=== PATIENT | male | born 1970 | race Two or more races ===

== ENCOUNTER 2017-01-07 08:08 | Emergency (ER) | payer OTHER ==
--- NOTE | 2017-01-07 08:30 | EDPHY ---
H & P Time Seen by Provider: 01/07/17 08:10 HPI/ROS: HPI Finger injury. 47-year-old male by private vehicle. This patient reports that he was at work. He reports that he was moving a fan accidentally jammed his right ring finger tip in between a wall and this fan while he was moving it. He complains of an injury to the nail and the distal ulnar aspect of the right ring finger. No other complaint or injury. Patient reports that he had a tetanus shot last year. ROS: Constitutional: No fever, no chills. No weakness. Musculoskeletal: No back pain. No neck pain. As above. No other extremity pain. Skin: No rashes. As above. Neurological: No focal weakness or altered sensation. Past medical history: No significant past medical history. Social history: Smoker. No IV drugs or street drugs. No alcohol. Physical Exam: General Appearance: Alert, no distress. This patient is responding to questions appropriately and in full sentences. This patient appears well- hydrated and well-nourished. Right hand and ring finger: Significant for an avulsed fingernail, the ulnar half at the proximal nail fold and lateral nail fold. Small amount of bleeding from the ulnar paronychial tissue. 1.5 cm laceration distal finger tip of finger. The nail is freely removal except for a 20% portion adhered properly radial proximal nail fold. There is not a significant subungual hematoma. The ring finger is neurovascularly intact. He does have tenderness on palpation to the distal aspect of the ring finger dorsal proximal nail bed. Bony aspects of the hand and other digits are otherwise nontender on palpation. Neurological: Motor sensory function is grossly intact. Cranial nerves are normal. Gait is normal. Skin: Warm and dry, no rashes. As above. Extremities are symmetrical. All joints range without pain or impingement. Psychiatric: No agitation. No depression. Database: EKG: Imaging: Right 4th finger x-ray series: Negative for fracture, subluxation, dislocation no radio opaque foreign body seen. Interpreted by me. Procedures: Procedure: Laceration repair. Verbal consent was obtained from the patient. Avulsed fingernail as well as the 1.5 cm laceration on the tip of the 4th finger right hand was anesthetized in the usual fashion with digital block using 0.5% bupivacaine without epinephrine. The wound was irrigated, draped and explored to its base with a gloved finger. There were no deep structures involved. No tendon injury was identified. No foreign body identified. The wound was repaired with 3, 5.0 sutures placed in interrupted fashion to close the laceration and 2, 5.0 sutures used to tack down the distal tip nail to the nail bed, 1 placed on the ulnar aspect and 1 placed on the radial aspect lateral nail folds. The wound repair was tolerated well and there were no complications. The procedure was performed by myself. Emergency department course: Digital block performed on right 4th finger with excellent anesthesia. Using a Melisa clamp and needle drivers I was able to reestablish the anatomical position of the finger nail underneath the paronychial and eponychial fold. Wound care as above. The procedure was tolerated well. There were no complications. The wound was appropriately dressed. Results of x-rays discussed with the patient. Wound care was reviewed with the patient. Follow- up and return to emergency department precautions reviewed. All of his questions were answered. He was discharged in good condition. Differential Diagnosis: The differential diagnosis on this patient includes but is not limited to avulsed fingernail, contusion injury to distal right 4th finger, finger laceration. Retained foreign body, tendon injury unlikely. This represents a partial list of diagnoses considered. These considerations are based on history , physical exam, past history, reassessment and diagnostic testing. Smoking Status: Current some day smoker Constitutional: Initial Vital Signs Temperature (C) 36.9 C 01/07/17 08:12 Heart Rate 80 01/07/17 08:12 Respiratory Rate 18 01/07/17 08:12 Blood Pressure 144/84 H 01/07/17 08:12 O2 Sat (%) 95 01/07/17 08:12 O2 Delivery Mode Room Air Allergies/Adverse Reactions: No Known Allergies Allergy (Unverified 01/07/17 08:11) Home Medications: Medication Instructions Recorded NK [No Known Home Meds] 01/07/17 Medical Decision Making - Diagnostics Imaging Results: Imaging Impressions Finger X-Ray 01/07/17 08:23 Impression: 1. No acute osseous abnormality seen right fourth digit. Departure - Departure Disposition: Home, Routine, Self-Care Clinical Impression: Right 4th finger injury, Fingernail avulsion, Finger laceration Condition: Good Instructions: Finger Laceration (ED), Care For Your Stitches (ED), Laceration ( ED) Additional Instructions: Read and follow provided instructions. Follow-up with your primary care physician in 2-3 days for re-evaluation. Return to the emergency department to have 2 fingernail sutures removed in 5 days, finger tip laceration sutures are to be removed in 7 days. There is a good possibility that the fingernail will come off and will be lost as discussed. Ibuprofen dosin mg every 6 hours with meals for the next 3 days only. Return to the emergency department for worsening worsening pain, discoloration of the finger, swelling of the finger underneath the fingernail with associated pain or other serious concerns. Referrals: NONE *PRIMARY CARE P,. [Primary Care Provider] - As per Instructions Stand Alone Forms: Work Excuse
[2017-01-07 09:38] VITALS: BP 110/73; PULSE 78; RESP 16; TEMP 98.2; O2SAT 97
== END 2017-01-07 09:31 | disposition home or self-care (01) ==
LOC: CED 08:08
PROC: 0HQFXZZ Repair Right Hand Skin, External Approach (ICD-10-PCS; principal; 2017-01-07)
DX: S61.214A Laceration without foreign body of right ring finger without damage to nail, initial encounter (principal); W23.1XXA Caught, crushed, jammed, or pinched between stationary objects, initial encounter; F17.200 Nicotine dependence, unspecified, uncomplicated
CPT/HCPCS: 73140-PO